=== PATIENT | female | born 1960 | race Caucasian/White ===

== ENCOUNTER → 2017-07-17 | Outpatient (CLI) | payer OTHER ==
[~2017-07-17] MED LIST: CALCIUM CARBONATE PO; CENTRUM SILVER1 EAC3 PO; ERY-TAB500 MG; MUCINEX600 MG PO; NEOMYCIN 500 MG; NORCO 7.5-3251 EACH PO; OMEGA 3 PO; SIMVASTATIN20 MG PO
== END ==
LOC: M.RAD 07-04 13:19 → M.CT 14:16 → M.RAD 15:30
DX: M85.89 Other specified disorders of bone density and structure, multiple sites (principal); M47.892 Other spondylosis, cervical region; M41.82 Other forms of scoliosis, cervical region; J43.9 Emphysema, unspecified; R22.1 Localized swelling, mass and lump, neck; Z78.0 Asymptomatic menopausal state